=== PATIENT | female | born 1955 | race Caucasian/White ===

== ENCOUNTER → 2025-05-20 | Outpatient (CLI) | payer MEDICARE ==
[~2025-05-20] MED LIST: ACET-907 PO; AMLO1TAB24 PO; AZEL1SPR3; BUDE10.22 INH; CYCL-707 PO; GABA-1172 PO; LOSA50TA28 PO; OMEP40CA5 PO; VENTAER INH
[2025-05-20 08:32] VITALS: TEMP 98.2
[2025-05-20 10:06] VITALS: BP 128/88; O2SAT 99
== END ==
LOC: M WHCPRO 08:25
PROVIDERS: ATTEND Surgery
DX: C50.412 Malignant neoplasm of upper-outer quadrant of left female breast (principal)
CPT/HCPCS: 10035; 77065; A4648; G0279